=== PATIENT | female | born 1980 | race Two or more races ===

== ENCOUNTER → 2017-02-23 | Outpatient (CLI) | payer OTHER ==
--- NOTE | 2017-02-23 13:48 | REP ---
FOCUSED LEFT BREAST SONOGRAPHY: HISTORY: Inferolateral quadrant of the left breast lump 4-o'clock position. FINDINGS: The left breast is scanned from 2-o'clock position to 4-o'clock position, focusing on the 3-o'clock position palpable abnormality. The patient reports that this is present for 1 week. Heterogeneous fibroglandular background echotexture is seen sonographically. No mass or cyst is observed. No acoustic shadowing or other suspicious finding. IMPRESSION: BIRADS category 1 negative focused left breast sonography. This negative report should not dissuade one from biopsy of a palpable lump depending on its clinical characteristics. Clinical follow-up is advised. Signed by Vinh Lewis MD 02/23/2017 04:41 P
== END ==
LOC: M RAD 09:59
PROVIDERS: ATTEND Physician Assistant
DX: N63 Unspecified lump in breast (principal)

== ENCOUNTER → 2017-04-16 | Outpatient (CLI) | payer OTHER ==
--- NOTE | 2017-04-16 19:14 | REP ---
CHEST, TWO VIEWS: There is no evidence of acute infiltrate. No pleural effusion is seen. The heart is normal in size. The mediastinal silhouette is unremarkable. The visualized osseous structures are intact. IMPRESSION: No acute pulmonary disease. Signed by Stewart Nguyen MD 04/16/2017 07:15 P
== END ==
LOC: M LRY 18:20
PROVIDERS: ATTEND Nurse Practitioner Family
DX: R05 Cough (principal)
CPT/HCPCS: 71020; 93005; 96372; G0463; J1885

== ENCOUNTER → 2017-12-08 | Outpatient (CLI) | payer OTHER | LOC: M RAD 10:16 | DX: N88.8 Other specified noninflammatory disorders of cervix uteri (principal) | CPT/HCPCS: 76856 ==

== ENCOUNTER 2018-10-14 03:03 | Inpatient (IN) | payer OTHER ==
[~2018-10-14] VITALS: Ht 167.6 cm; Wt 124.0 kg
[2018-10-14] VITALS (12 sets, daily range): BP systolic 112–137; BP diastolic 56–86
[2018-10-14 04:03] LABS: HEMATOCRIT 39.3 % (36.0-47.0); HEMOGLOBIN 13.9 g/dl (12.0-15.5); MEAN CORPUSCULAR HEMOGLOBIN 33.9 pg (27.0-33.0); MEAN CORPUSCULAR HGB CONC 35.4 g/dl (32.0-36.5); MEAN CORPUSCULAR VOLUME 95.9 fl (80.0-96.0); PLATELET COUNT, AUTOMATED 192 10^3/uL (150-450); WHITE BLOOD COUNT 9.2 10^3/uL (4.0-10.0)
[2018-10-14] MEDS ORDERED: OXYTOCIN 30 UNITS IN 0.9% NaCl 500ML IV BAG (J2590) As Ordered ONE (05:28)
[2018-10-14] MEDS ORDERED: PROMETHAZINE 25 MG TAB PO ONE (06:00)
[2018-10-14] MEDS ORDERED: BUTORPHANOL 2 MG/ML INJ (J0595) IV ONE (06:00)
[2018-10-14] MEDS ORDERED: PROMETHAZINE INJ 25 MG/ML VIAL (J2550) IV ONE (06:15)
--- NOTE | 2018-10-14 06:52 | HPE ---
DATE OF ADMISSION: 10/14/2018 HISTORY OF PRESENT ILLNESS: 37-year-old 4, para 2, 1, last menstrual period (LMP) is unknown. Her estimated date of confinement (EDC) by early ultrasound is 10/24/2018. She is at 36 and 4, with a history of spontaneous rupture of membranes, clear liqua, and contractions. Her risk factors in her BMI is 38.19. She is a GDM 1, she had an ASD repaired at age 1, cardiac clearance was given. She failed her 3-hour GTT. She requested a TOLAC and she is an AMA. PAST HISTORY: In 2003 at 40 weeks, spontaneous vaginal delivery, male 8 pounds. In 2012, at 42 weeks, induction of labor, failure to progress beyond 3 cm, had a primary section, 8 pound 3 ounce male. In 2013 had a dilatation and curettage for a 15-week demise, apparently had some bleeding, but no blood transfusion. LABS: Show A positive. HIV negative. Hepatitis negative. RPR negative. Rubella immune. Varicella is immune. She had a urine which was positive for mixed vaginal cong. She did not do a 1-hour glucose, or at least we are unable to locate that. She did have a 3-hour GTT in which her fasting was 98. Her 1 hour was 197, her 2 hour was 192, and her 3 hour was 198. In reviewing her glucose logs everything says N/A, there does not seem to be any numbers related to monitoring of her glucose. Blood pressure is 135/82, respirations 18, pulse 101, temperature 97.8. Hemoglobin 13.9, hematocrit 39.3, platelets are 192 and glucose is pending. She appears distressed. Symphysis fundus height is 40, vertex -4, 3 cm. Not well applied. Clear liqua is noted. Her scar on her uterus is intact. Patient is requesting pain medications in the form of IV meds as she is having considerable pain. The rest of the examination unremarkable. She has a category 1 strip. She is normocephalic, atraumatic. Neck full range of motion. Pupils equal and reactive to light. Distal pulses are symmetric. No evidence of deep vein thrombosis (DVT), pulmonary embolism (PE) or superficial phlebitis. Lungs are clear bilaterally to the bases. No wheezes or rhonchi. Abdomen is soft. Four quadrant bowel sounds. Position is vertex. She has no rashes, lesions or pruritus. No arthralgia, myalgia. No complaint joint pain. No cough, wheeze, shortness of breath or dyspnea on exertion. Not bleeding. Neuro complete. No incontinence, urgency or frequency. No nausea, vomiting, diarrhea or constipation. She has diabetic issues, it is undetermined whether she is well-controlled or not. The patient is requesting TOLAC and consented for vaginal delivery, delivery of her baby through the vagina with possible assistance, forceps or vacuum devices if needed for maternal and indications, forceps or vacuum device that can assist with vaginal delivery when normal pushing efforts cannot be achieved on their own or when delivery is needed in an emergency for baby's well-being. Medications may be required to induce or augment her labor in order to achieve vaginal delivery, although there are risks involved in a TOLAC and increased risk of rupture of the uterus. Episiotomy may or may not be needed to help baby to deliver vaginally. She may require an emergency section because of issues of distress or ruptured uterus, and there may not be enough time to stop and complete consent forms; however, if she requires an emergency section, we will fully discuss the risks and benefits, including hemorrhage, infection, perforation, , reoperation, demise, remote possibility of hysterectomy, remote possibility blood transfusion before proceeding. A section is required to delivered the baby through the abdomen as she had previously, and situations section may be the safest to mother and baby and continuing labor will be hazardous to both and it is only performed in clinically indicated situations. The risk of vaginal delivery including TOLAC or rupture of the uterus but are not limited to bleeding, infection, injury to vagina, pelvic structures, injury to baby, damage to the uterus, reaction to anesthesia, risk of hysterectomy with for life-threatening bleeding situations or , medications may be used to be augment labor, although very judiciously because of previous section. She may increase her risk of tachysystole, uterine rupture, heart rate anomalies, need for emergency section and risk of perineal vaginal lacerations which would have to be repaired. Risk of urinary or bowel incontinence, scratches to the baby's head, hematomas or intracranial bleed. The patient expressed understanding and had this full discussion at 28 weeks with her provider. We will continue on the road for TOLAC with an IV running. The patient has declined epidural at the present time. Total face time was 30 minutes with all questions answered.
[2018-10-14] MEDS ORDERED: LR 1,000 ML IV SCH (07:45)
[2018-10-14] MEDS ORDERED: OXYTOCIN DRIP 30 UNITS in APPROPRIATE DILUENT 1 EA IV SCH (08:44)
[2018-10-14] MEDS ORDERED: IBUPROFEN 800 MG TAB PO PRN (08:45)
[2018-10-14] MEDS ORDERED: DIBUCAINE 1% OINTMENT 30GM TOP PRN (08:45)
[2018-10-14] MEDS ORDERED: RHOGAM 300 MCG (1500 IU) INJ (J2790) IM SCH (08:45)
[2018-10-14] MEDS ORDERED: ONDANSETRON 4MG/2ML VIAL (J2405) IV PRN (08:45)
[2018-10-14] MEDS ORDERED: LIDOCAINE 1% MDV 20ML VIAL INFIL ONE (08:45)
[2018-10-14] MEDS ORDERED: MEASLES,MUMPS,RUBELLA VACCINE INJ (MMR-II) (90707) SC SCH (08:45)
[2018-10-14] MEDS ORDERED: ACETAMINOPHEN TAB 650MG DOSE (2X325MG) PO PRN (08:45)
--- NOTE | 2018-10-14 08:53 | DNPDOC ---
[facility] Delivery Note Delivery Note DATE OF DELIVERY: [id number] PREDELIVERY DIAGNOSIS: 38 4/7 weeks' gestation and labor. POST DELIVERY DIAGNOSIS: Delivered. PROCEDURE: Spontaneous MANAGER ENGINE: Dr. Fontana ANESTHESIA: none ESTIMATED BLOOD LOSS: 200 mL. FINDINGS: 7 pound 8 ounce male infant, Score 8/9, nuchal cord times 1, loose DELIVERY SUMMARY: Rapid uncontrolled delivery. No delay of the vtx or the ant/post shoulders. To abd. Cord C/C by FOB. Cord blood. Plac intact with massage, fundus firm, pit going 999. 1st degr per lac repaired in standard fashion with 3-0 vicryl. Good cosmesis/hemostasis. SUNI FONTANA MD Oct 14, 2018 08:53
[2018-10-14] MEDS: DOCUSATE SODIUM 100 MG CAP PO SCH ×2 (09:00→20:58)
[2018-10-14] MEDS: PRENATAL VITAMINS CHEWABLE TABLET PO SCH (09:00)
[2018-10-15 06:07] VITALS: BP 110/62
--- NOTE | 2018-10-15 06:34 | DS.PDOC ---
Discharge Summary General Date of Admission Oct 14, 2018 at 04:23 Date of Discharge Oct 15, 2018 Discharge Summary HOSPITAL COURSE: Ms. Randhawa is a 37 yo G4 now p3 who underwent an uncomplicated on 14Oct2018 after being admitted for active labor. Her recovery course has been unremarkable. On her day of discharge she met all appropriate discharge criteria. She was ambulating, voiding, tolerating a regular diet, had minimal lochia, and her pain was well controlled. DISCHARGE MEDICATIONS: Please see below. ALLERGIES: Please see below. PHYSICAL EXAMINATION ON DISCHARGE: VITAL SIGNS: Please see below. GENERAL: AAOX3, sitting up in bed, NAD ABDOMINAL EXAMINATION: Fundus firm at U-2. No fundal tenderness. EXTREMITIES: No edema PSYCHIATRIC EXAMINATION: Affect appropriate LABORATORY DATA: Please see below. ACTIVITY: Pelvic rest for 6 weeks. DIET: Regular DISCHARGE PLAN: DC home on 15Oct2018 DISPOSITION: DC home . DISCHARGE INSTRUCTIONS: 1. Pelvic rest for 6 weeks. ITEMS TO FOLLOWUP ON ON OUTPATIENT: 1. appointment in 6-8 weeks. DISCHARGE CONDITION: Stable. TIME SPENT ON DISCHARGE: Greater than 20 minutes. Annabelle Cash DO Vital Signs/I&Os Vital Signs Date Time Temp Pulse Resp B/P (MAP) Pulse Ox O2 Delivery O2 Flow Rate FiO2 10/15/18 06:07 97.4 72 18 110/62 (78) I&O- Last 24 Hours up to 6 AM 10/15/18 06:00 Intake Total 1380 ml Output Total 500 ml Balance 880 ml Discharge Medications No Active Prescriptions or Reported Meds Allergies Coded Allergies: No Known Allergies (Unverified , 09/09/17) ANNABELLE CASH DO Oct 15, 2018 06:34
[2018-10-15] MEDS ORDERED: MAPA500T2 PO (07:23)
[2018-10-15] MEDS ORDERED: PRENTAB9 PO (07:23)
[2018-10-15] MEDS ORDERED: IBUP-1114 PO (07:23)
[2018-10-15] MEDS: DOCUSATE SODIUM 100 MG CAP PO SCH (09:05)
[2018-10-15] MEDS: PRENATAL VITAMINS CHEWABLE TABLET PO SCH (09:05)
== END 2018-10-15 13:35 | disposition home or self-care (01) | DRG 807 ==
LOC: M LDO 03:03 → M LDI 04:23 → M OBS 10:59
PROVIDERS: ADMIT Obstetrics & Gynecology; ATTEND Obstetrics & Gynecology
PROC: 10E0XZZ Delivery of Products of Conception, External Approach (ICD-10-PCS; principal; 2018-10-14)
PROC: 0HQ9XZZ Repair Perineum Skin, External Approach (ICD-10-PCS; 2018-10-14)
DX: O34.211 Maternal care for low transverse scar from previous cesarean delivery (principal); Z37.0 Single live birth; Z3A.38 38 weeks gestation of pregnancy; O69.81X0 Labor and delivery complicated by cord around neck, without compression, not applicable or unspecified; O70.0 First degree perineal laceration during delivery; O24.429 Gestational diabetes mellitus in childbirth, unspecified control

== ENCOUNTER 2019-06-28 07:31 | Day surgery (SDC) | payer OTHER ==
[~2019-06-28] VITALS: Ht 167.6 cm; Wt 114.8 kg
[~2019-06-28 07:31] MED LIST: IBUP-1114 PO; LIDOCAINE 2% INJ 100 MG/5 ML SDV (FOR ANES.) As Ordered ONE; MAPA500T2 PO; NS 1,000 ML IV ONE; PREN29TA4 PO; PRENTAB9 PO; propofoL 200 MG/20 ML VIAL As Ordered ONE
--- NOTE | 2019-06-28 08:59 | ROOR ---
Patient Name: Tiffany Tello Procedure Date: 06/28/2019 8:32 AM Date of : 1980 Age: 38 Room: [facility] Gender: Female Note Status: Finalized Procedure: Colonoscopy Indications: Exclusion of left-sided chronic ulcerative colitis, Irritable bowel syndrome with constipation Providers: Freddy CLAYTON MD Referring MD: DAVID HERNANDEZ MD Requesting Provider: Medicines: Monitored Anesthesia Care Complications: No immediate complications. Procedure: Pre-Anesthesia Assessment: - The heart rate, respiratory rate, oxygen saturations, blood pressure, adequacy of pulmonary ventilation, and response to care were monitored throughout the procedure. The Colonoscope was introduced through the anus and advanced to 10 cm into the ileum. The colonoscopy was performed without difficulty. The patient tolerated the procedure well. The quality of the bowel preparation was good. Findings: The perianal and digital rectal examinations were normal. The terminal ileum appeared normal. A 10 mm polyp was found in the cecum. The polyp was flat. The polyp was removed with a piecemeal technique using a cold snare. Resection and retrieval were complete. A 4 mm polyp was found in the sigmoid colon. The polyp was sessile. The polyp was removed with a cold snare. Resection and retrieval were complete. The exam was otherwise without abnormality on direct and retroflexion views. Impression: - The examined portion of the ileum was normal. - One 10 mm polyp in the cecum, removed piecemeal using a cold snare. Resected and retrieved. - One 4 mm polyp in the sigmoid colon, removed with a cold snare. Resected and retrieved. - The examination was otherwise normal on direct and retroflexion views. Ulcerations seen on previous colonoscopy are not present today. (There is no evidence of iflammatory bowel disease.) Recommendation: - Repeat colonoscopy in 3 years for surveillance. - Continue present medications. - Depending on results with medications, a trial on Trulance 3 mg or Linzess 290 mcg may be considered to manage Irritable bowel with constipation (IBS-C) Freddy Clayton MD Freddy CLAYTON MD 06/28/2019 8:58:52 AM Electronically signed by Freddy CLAYTON MD Number of Addenda: 0 Note Initiated On: 06/28/2019 8:32 AM Estimated Blood Loss: Estimated blood loss: none.
[2019-06-28 09:20] VITALS: BP 122/68
== END 2019-06-28 09:37 | disposition home or self-care (01) ==
LOC: M OPP 07:31
PROVIDERS: ATTEND Internal Medicine Gastroenterology
DX: K51.50 Left sided colitis without complications (principal); K58.1 Irritable bowel syndrome with constipation; D12.0 Benign neoplasm of cecum; D12.5 Benign neoplasm of sigmoid colon; Z86.19 Personal history of other infectious and parasitic diseases; Z87.74 Personal history of (corrected) congenital malformations of heart and circulatory system; Z79.899 Other long term (current) drug therapy

== ENCOUNTER → 2021-11-05 | Outpatient (REF) | payer OTHER ==
[~2021-11-05] MED LIST changes: -LIDOCAINE 2% INJ 100 MG/5 ML SDV (FOR ANES.) As Ordered ONE; -NS 1,000 ML IV ONE; -propofoL 200 MG/20 ML VIAL As Ordered ONE
[2021-11-05 19:24] LABS: APPEARANCE, URINE CLEAR (CLEAR); BACTERIA, URINE AUTO NEGATIVE (NEGATIVE); BILIRUBIN, URINE AUTO NEGATIVE (NEGATIVE); BLOOD, URINE BLOOD 3+ (NEGATIVE); CALCIUM OXALATE CRYSTALS SMALL; COLOR, URINE YELLOW (YELLOW); GLUCOSE, URINE (UA) AUTO NEGATIVE (NEGATIVE); KETONE, URINE AUTO NEGATIVE (NEGATIVE); LEUKOCYTE ESTERASE, URINE AUTO NEGATIVE (NEGATIVE); MUCUS, URINE SMALL (NEGATIVE); NITRITE, URINE AUTO NEGATIVE (NEGATIVE); PROTEIN, URINE AUTO NEGATIVE (NEGATIVE); RBC, URINE AUTO 4 /HPF (0-3); SPECIFIC GRAVITY URINE AUTO 1.024 (1.002-1.035); SQUAMOUS EPITHELIAL CELL UR AU 1 /HPF (0-6); UROBILINOGEN, URINE AUTO 0.2 mg/dL (0.0-2.0); WBC, URINE AUTO 2 /HPF (0-3)
== END ==
LOC: M SMT 17:12
PROVIDERS: ATTEND Nurse Practitioner Women's Health
DX: R35.0 Frequency of micturition (principal)

== ENCOUNTER 2022-09-12 08:22 | Day surgery (SDC) | payer OTHER ==
[~2022-09-12] VITALS: Ht 167.6 cm; Wt 114.2 kg
[~2022-09-12 08:22] MED LIST changes: +NS 1,000 ML IV ONE; +SYNT50TA PO
[2022-09-12] MEDS ORDERED: propofoL 200 MG/20 ML VIAL As Ordered ONE (09:01)
[2022-09-12] MEDS ORDERED: fentaNYL 100 MCG/2 ML INJECTION As Ordered ONE (10:50)
[2022-09-12 11:20] VITALS: BP 147/89
== END 2022-09-12 11:37 | disposition home or self-care (01) ==
LOC: M OPP 08:22
PROVIDERS: ATTEND Internal Medicine Gastroenterology
DX: Z12.11 Encounter for screening for malignant neoplasm of colon (principal); Z86.010 Personal history of colon polyps; K64.8 Other hemorrhoids; Z79.899 Other long term (current) drug therapy; E03.9 Hypothyroidism, unspecified; Z80.1 Family history of malignant neoplasm of trachea, bronchus and lung; Z80.3 Family history of malignant neoplasm of breast; Z80.49 Family history of malignant neoplasm of other genital organs; Z90.49 Acquired absence of other specified parts of digestive tract
CPT/HCPCS: 45378; J3010